=== PATIENT | male | born 1950 | race Caucasian/White ===

== ENCOUNTER → 2019-04-17 10:45 | Outpatient (BNVA) | payer MEDICARE, SELFPAY | PROVIDERS: Family Provider Family Medicine; PCP Family Medicine; Visit Provider Specialist | DX: M16.11 Unilateral primary osteoarthritis, right hip (principal) | CPT/HCPCS: 73502; 81001 ==

== ENCOUNTER 2019-05-02 15:46 | Observation (INO) | payer MEDICARE, SELFPAY ==
[2019-04-25 13:27] VITALS: BMI 36.2
--- NOTE | 2019-04-25 13:43 | ANES.PREANES ---
Pre-Anesthetic Assessment Pre-Anesthetic Assessment: Height/Weight: Height 1.8 m Weight 117.934 kg Preop Diagnosis: Severe degenerative osteoarthritis right hip Proposed Procedure: Operation Date: 05/02/19 09:45 Proposed Procedures p Total Hip Arthroplasty 33983(Right) - Mayra Johnson MD Exam: Pre-Anes Outpt Exam: alert, oriented x 3, clear to auscultation bilaterally and regular rate & rhythm Airway: Submandibular: WNL Cervical ROM: WNL MP: 1 Neuropsych: Neuropsych: [place] PFSH Anesthesia PFSH: Social History Smoking and tobacco status: never smoked Second hand smoke exposure: Yes Alcohol intake: current Alcohol intake frequency: few times a week Alcohol type: hard liquor Data Anesthesia Cardiac Studies: No Data to Display
[2019-05-02] VITALS (23 sets, daily range): BP systolic 102–151; BP diastolic 66–87; PULSE 82–112; RESP 14–22; TEMP 36.8–37.2; O2SAT 92–100
--- NOTE | 2019-05-02 07:23 | PM.HPUD ---
H&P update H&P Update: DATE OF SURGERY/PROCEDURE: 05/02/19 DATE H&P PERFORMED: 04/17/19 H&P UPDATE INFORMATION: H&P completed within last 30 days, No changes to prior documentation and H&P is in [facility] on date indicated PREOP DIAGNOSIS: Severe Degenerative Osteoarthritis Right Hip PRIMARY INDICATION FOR PROCEDURE: Right Hip Pain and limitations in ADL's PLANNED PROCEDURE: Operation Date: 05/02/19 09:45 Proposed Procedures Total Hip Arthroplasty 56443(Right) - Mayra Johnson MD Full H&P Perinent History: Family History: Family History (Updated 04/17/19 @ 10:31 by Tisha Boone LPN) Grandmother Stroke Grandfather Stroke Mother Stroke Dementia Father Cancer Lung disease Sister Psychiatric illness Other Hyperlipidemia Denies family history of Diabetes CAD (coronary artery disease) Clotting disorder Chronic kidney disease (CKD) Suicide Anesthesia complication Bleeding disorder Family history of premature coronary artery disease Hypertension Social History: Social History Smoking and tobacco status: never smoked Second hand smoke exposure: Yes Alcohol intake: current Alcohol intake frequency: few times a week Alcohol type: hard liquor
[2019-05-02] MEDS: CELEcoxib 200 mg Capsule 400 MG PO (09:55)
[2019-05-02] MEDS: sodium chloride 0.9% 1,000 ML 30 ML IV (09:55)
[2019-05-02 10:22] LABS: Basophils % 0.4 %; Eosinophils # 0.1 10^3/uL (0.0-0.8); Hematocrit 43.1 % (42.0-52.0); Hemoglobin 14.4 g/dL (11.7-16.6); Lymphocytes # 1.4 10^3/uL (0.8-4.8); Lymphocytes % 15.7 %; Mean Corpuscular HGB Conc 33.4 g/dL (30.0-36.0); Mean Corpuscular Hemoglobin 32.7 pg (28.0-34.0); Mean Platelet Volume 10.5 fL (7.4-10.4); Monocytes # 0.6 10^3/uL (0.2-0.9); Monocytes % 6.5 %; Neutrophils # 6.8 10^3/uL (1.8-7.7); Neutrophils % 76.2 %; Nucleated Red Blood Cells % 0 %; Platelet Count 227 10^3/cmm (130-400); Red Cell Distribution Width 11.9 % (12.1-15.1)
[2019-05-02 10:41] LABS: Alanine Aminotransferase 20 U/L (0-41); Albumin Level 4.5 g/dL (3.5-5.2); Alkaline Phosphatase 78 IU/L (40-130); Anion Gap 16.2 (5-19); Aspartate Amino Transferase 19 U/L (0-40); Blood Urea Nitrogen 21 mg/dL (8-23); Calcium 9.5 mg/dL (8.5-10.5); Carbon Dioxide 22 mmol/L (22-29); Chloride 101 mmol/L (98-107); Creatinine Clr Calc Pharmacy 101.1899; Globulin 2.3 g/dL (1.3-4.6); Glomerular Filtration Rate 83.7 mL/min (90-130); Glucose 107 mg/dL (74-106); Potassium 4.2 mmol/L (3.5-5.1); Sodium 135 mmol/L (136-145); Total Bilirubin 1.8 mg/dL (0.15-1.2); Total Protein 6.8 g/dL (6.6-8.7)
--- NOTE | 2019-05-02 12:21 | ANES.PREANES ---
Pre-Anesthetic Assessment Pre-Anesthetic Assessment: Height/Weight: Height 1.8 m Weight 117.934 kg Temp 98.2 F 05/02/19 10:05 Preop Diagnosis: Severe Degenerative Osteoarthritis Right Hip Proposed Procedure: Operation Date: 05/02/19 09:45 Proposed Procedures p Total Hip Arthroplasty 95723(Right) - Mayra Johnson MD Last intake: Intake Last Liquid Date 05/01/19 Last Solid Date 05/01/19 Social: Social History: Alcohol (weekly) and No tobacco Exam: Pre-Anes Outpt Exam: alert, oriented x 3, clear to auscultation bilaterally and regular rate & rhythm Airway: Submandibular: WNL Cervical ROM: WNL MP: 3 Dentition: Other (poor) History/ROS: No significant history except as noted Pulmonary: Pulmonary: None reported CV/HEM: CV/HEM: None reported : : None reported Hepatic: Hepatic: None reported GI: GI: GERD (occ) Metabolic: Metabolic: Hyperlipidemia and Morbid obesity Musc/skel: Musc/skel: OA/DJD Neuropsych: Neuropsych: Anxiety and Depression Anesthetic Plan: ASA status: III Anesthesia: Anesthesia Evaluation and General Risk of > 500 ml blood loss (7ml/kg in children): No Meds/Allergies Current Medications: Current Medications Generic Name Dose Route Start Last Admin Trade Name Freq PRN Reason Stop Dose Admin Sodium Chloride 1,000 mls @ 30 ml s/hr 05/02/19 09:45 05/02/19 09:55 Sodium Chloride 0.9% IV 05/03/19 09:44 30 mls/hr .Q24H SHAINA Administration PFSH Anesthesia PFSH: Medical History Anxiety (Acute) Depression (Acute) Hyperlipidemia (Acute) Polyuria (Acute) Surgical History Hx of adenoidectomy (Acute) Hx of bilateral cataract extraction (Acute) Hx of tonsillectomy (Acute) Family History Grandmother Stroke Grandfather Stroke Mother Stroke Dementia Father Cancer Lung disease Sister Psychiatric illness Other Hyperlipidemia Denies family history of Diabetes CAD (coronary artery disease) Clotting disorder Chronic kidney disease (CKD) Suicide Anesthesia complication Bleeding disorder Family history of premature coronary artery disease Hypertension Social History Smoking and tobacco status: never smoked Second hand smoke exposure: Yes Alcohol intake: current Alcohol intake frequency: few times a week Alcohol type: hard liquor Data Anesthesia CBC & Chem 7: 05/02/19 09:45 05/02/19 09:45 Other Labs: Laboratory Results - last 48 hr 05/02/19 05/02/19 05/02/19 09:45 09:45 09:45 WBC 9.0 RBC 4.40 Hgb 14.4 Hct 43.1 MCV 98.0 H MCH 32.7 MCHC 33.4 RDW 11.9 L Plt Count 227 MPV 10.5 H Neut % (Auto) 76.2 Lymph % (Auto) 15.7 Swisher % (Auto) 6.5 Eos % (Auto) 1.0 Baso % (Auto) 0.4 Neut # (Auto) 6.8 Lymph # (Auto) 1.4 Swisher # (Auto) 0.6 Eos # (Auto) 0.1 Baso # (Auto) 0.0 Nucleated RBC % (auto) 0 Nucleated RBCs # 0.0 Sodium 135 L Potassium 4.2 Chloride 101 Carbon Dioxide 22 Anion Gap 16.2 BUN 21 Creatinine 0.9 GFR Calculation 83.7 L Glucose 107 H Calcium 9.5 Total Bilirubin 1.8 H AST 19 ALT 20 Alkaline Phosphatase 78 Total Protein 6.8 Albumin 4.5 Globulin 2.3 Blood Type A Positive Antibody Screen Negative Cardiac Studies: No Data to Display
[2019-05-02] MEDS: midazolam 1 mg/mL INJ 2 mL 2 MG IVP (13:06)
[2019-05-02] MEDS: vancomycin 1,000 MG in sodium chloride 0.9% 250 ML 250 MG IV ×2 (13:06→20:54)
[2019-05-02] MEDS: vancomycin 1,000 MG SDV 1000 MG IRRIGATION (13:59)
--- NOTE | 2019-05-02 14:54 | SUR.OPER ---
Family Notified Of Patient's Status Via Phone.
[2019-05-02] MEDS: vancomycin 1,000 MG SDV 1000 MG XX (15:27)
--- NOTE | 2019-05-02 16:24 | XR_ITS ---
WS: [id number] Pelvis, AP view, 05/02/2019 Clinical Data: Post op Comparison: AP pelvis and 2 views right heel, 04/17/2019 Findings: There is a right hip arthroplasty in good position. 2 orthopedic screws are fixing the acetabular por tion of the prosthesis to the pelvis. The medullary portion of the prosthesis is within the proximal right femoral medullary canal. The left hip is normal. There is minimal air in the operative site. XR/XR pelvis 1-2V* [id number] Impression: Right hip arthroplasty.
[2019-05-02] MEDS: fentaNYL 50 mcg/mL INJ 2mL IVP ×2 (16:25→16:30)
[2019-05-02] MEDS: meperidine 50 mg/mL INJ 12.5 MG IVP ×2 (16:32→16:37)
--- NOTE | 2019-05-02 16:35 | PM.OP ---
Operative Report Date of procedure: 05/02/19 Pre-op Diagnosis: Severe Degenerative Osteoarthritis Right Hip Post-op diagnosis: same Post-op Findings: Severe degenerative osteoarthritis with large osteophytes, calcified labrum, and significant degenerative changes of the femoral head. Procedure Done: Right total hip arthroplasty utilizing the following components a size 60 mm Efren Trident II Tritanium cluster hole acetabular shell with a G alpha code with an MDM cementless liner size 48 mm by G alpha code, a size 8 Accolade to 127? neck angle hip stem with a 37 mm neck length, a 28 mm inner diameter with a 48G outer diameter sikhism X3 insert for the MDM, and a Biolox ceramic femoral head with a 28 mm outer diameter and a +0 mm neck length. 2 screws were placed in the acetabulum both 6.5 mm x 40 mm and 25 mm Specimens removed/disposition: Femoral head, disposed of Pathology: none sent Surgeon: Mayra Johnson Rack Pusher: [facility] OR technicians Anesthesia: General (Intubated) Estimated blood loss (mL): 1,000 IV fluids (mL): 2,000 Urine output (mL): 500 Complications: None Findings: Severe degenerative osteoarthritis with soft tissue contractures. Following the surgical procedure, the patient was stable at 90 degrees of flexion with 60 degrees of internal rotation and 30 degrees of adduction. He was also stable to external rotation and toe hang. Condition: stable Disposition: observation (On the surgical floor) Brief History: This 68-year-old gentleman was in his usual state of health when he presented with severe hip pain. X-rays demonstrated [id number] and shortening of the right lower extremity. The hip was completely obliterated with flattening of the femoral head. The patient wished to proceed with operative intervention as he was having significant limitations in his activities of daily living. Consents were signed and questions were answered and he was scheduled for the procedure as noted above. Procedure: Patient was brought to the operating theater. He was transferred to the operating room table and subsequently administered a general anesthetic intubated. Following administration of adequate anesthesia, the patient was placed in full lateral position and held in position with a pegboard. Also, the patient had minimal movement in his right lower extremity preoperatively which made draping as well as the entire surgical procedure very difficult and complex. The patient's right lower extremity was then prepped and draped in usual fashion utilizing DuraPrep. It was draped free. Following prepping and draping a surgical pause was performed. At the time of surgical pause, we identified the site and side of surgery. We also identified the patient and preoperative surgical markings. Confirmation was made of equipment availability. Additionally, the patient's preoperative IV antibiotic, vancomycin 1 g, was confirmed as being given in a timely fashion and being the appropriate antibiotic. Following the surgical pause, an incision was made centering over the patient's greater trochanter continuing proximally and distally as necessary to allow access to the hip joint. Dissection continued through skin and soft tissues using a scalpel, and hemostasis was obtained using electrocautery. The tensor fascia darvin was identified and incised longitudinally. Patient was very tight with regard to capsule, joint, and musculature which made this a very complex and difficult total hip arthroplasty. Sciatic nerve was identified and protected throughout the surgical procedure. A Charnley U retractor was placed after the tensor fascia darvin had been incised longitudinally, and the sciatic nerve had been identified. The hip was internally rotated as much as possible, and the piriformis muscle was identified and tagged. Piriformis muscle along with the remaining short external rotators were then incised from the posterior aspect of the hip joint. These were retracted posteriorly. The capsule was entered in a T-type fashion with the edges being tagged, and subsequently the hip was dislocated with use of a hip skid. Following hip dislocation, a femoral neck osteotomy was accomplished in the appropriate position. We then evaluated the acetabulum. The femur was retracted anteriorly. Soft tissues were retracted and the labrum was removed. There were noted to be significant osteophytes as well as calcified labrum. We then began reaming. Reaming was accomplished sequentially with appropriate deepening. Again, exposure of the acetabulum was difficult secondary to soft tissue contractures. Once the femoral head was removed, there was noted to be significant loss of cartilage over the head and over the acetabulum. We reamed to a size 59 mm to allow for a size 60 mm acetabular shell. The acetabulum was impacted into position. Two screws were then placed to better secure the cup. It was felt that screws would give us better stability. It was noted that the acetabulum matched the bony anatomy. The cup was noted to seat nicely and had good fixation upon impact. The MDM cementless metal liner was then impacted into position with care being taken to assure there was no soft tissue impingement between the acetabular liner and the acetabulum. Also, we confirmed that the acetabular insert was completely seated prior to addressing the femur. Attention was directed to the proximal femur. The proximal femur was lifted out of the wound. A canal finder was passed after the box chisel. The reamer was used to lateralize. We then began broaching. We broached sequentially and had excellent fit and fill with the size 8 Accolade II stem. A trial reduction was accomplished with a initially with a +0 mm femoral head with the 48G MDM insert. The patient had good stability with the +0 mm femoral head and it was not felt that we had increased his leg length. With this in place, we had the above stabilities, and at that time, we felt that we had restored leg lengths. We also felt that we had excellent stability noted above. Therefore, trial components were removed after the hip was dislocated. The size 8 Accolade to 127? neck angle hip stem with a 37 mm neck length was impacted into position without difficulty and onto this was placed the construct of the +0 mm femoral head with a 28 mm outer diameter and a sikhism MDM insert with a 28 mm inner diameter for the size 48G. With this construct, we had the above-noted stability. The stem was noted to seat nicely prior to placement of the femoral head. The wound was copiously irrigated with 20 mL of Betadine and 500 mL of normal saline mixed together. Subsequently, we suctioned this out and irrigated the wound copiously with lactated Ringer's. At this time, with all components in appropriate position, the hip was reduced. Following reduction of the prosthesis once again, we confirmed the stability of the hip. Leg lengths were also felt to be satisfactory. Being satisfied with the prosthesis, attention was directed to closure. Closure was accomplished with 0 Vicryl in the capsular tissues. Piriformis was reattached with 0 Vicryl as well. Tensor fascia darvin was closed with 0 Vicryl in an interrupted fashion. The subcutaneous tissues were closed with 2-0 Monocryl. Vancomycin powder and a Gelfoam thrombin mixture was placed into the wound as well. The skin was closed with a running 3-0 Monocryl followed by Exofin and Steri-Strips. This was covered with Telfa and Tegaderm. The patient was placed in an abduction pillow. He was returned the Recovery Room in a satisfactory condition and will be discharged to the floor for postoperative rehabilitation and pain management. There were no complications.
--- NOTE | 2019-05-02 16:49 | SUR.PHASEI ---
PTMORE ALERT RELAXED, GOOD RESP NOTED PT ON 3LNC SATS 100\5 NO DISTRESS, RT HIP DRESSING D/I DISTAL FOOT PULSE STRONG REGULAR AND MARKED BILAT FOOT PUMPS ON AND WRIGHT TO DD YELLOW URINE NOTED.
[2019-05-02] MEDS: morphine 4 mg/mL SDV 1 mL 2 MG IVP ×4 (17:00→17:11)
--- NOTE | 2019-05-02 17:13 | SUR.PHASEI ---
1632 PT AWAKES AND ALESHIA OUT SHIVERING EARLIER , WARM BLANKETS X 4 TO PT , SEE PAIN MEDS FOR SHIVERING AN DPAIN GIVEN, RT HIP DRESSING D/I FIRST ICE TO SITE. PT AWAKES AND ALESHIA OUT RATES PAIN AT 10 SEE ALL PAIN MEDS GIVEN PT REPORT CALLED AFTER EARLIER MEDS GIVEN DR TINSLEY AT BEDSIDE ORDERS RECIEVED TO CONTINUE TO GIVE MORPHINE 1717 PT SLEEPS IF NOT DISTURBED SATS 97% ON 3LNC
--- NOTE | 2019-05-02 17:24 | SUR.PHASEI ---
PT SLEEPS IF NOT DISTURBED VSS IV PATENT, RT HIP DRESSING D/I VSS PT READIED TO GO TO FLOOR PT STATES HE HAS NO FAMILY HERE REPORT CALLED BALBIR.
--- NOTE | 2019-05-02 17:56 | SUR.PHASEI ---
1745 PT TO FLOOR VSS PT AWKE ALERT TALKATIV EWITH STAFF.
[2019-05-02] MEDS: oxyCODONE-APAP 5-325 mg Tablet 1 TAB PO (18:08)
[2019-05-02] MEDS: atorvastatin 40 mg Tablet 20 MG PO (20:52)
[2019-05-02] MEDS: tamsulosin 0.4 mg Capsule PO (20:53)
[2019-05-02] MEDS: CELEcoxib 200 mg Capsule PO (20:53)
[2019-05-02] MEDS: TRAMadol 50 mg Tablet PO (20:53)
[2019-05-02] MEDS: sennosides-docusate Tablet 2 TAB PO (20:54)
[2019-05-02] MEDS: iron polysaccharide complex 150 mg Capsule PO (20:54)
[2019-05-02] MEDS: BuSPIRONE 10 mg Tablet PO (20:54)
[2019-05-02] MEDS: sertraline 50 mg Tablet PO (20:54)
[2019-05-02] MEDS: calcium carbonate 500 mg Chew Tablet 1000 MG PO (21:01)
[2019-05-02] MEDS: sodium chloride 0.9% 1,000 ML 100 ML IV (21:02)
[2019-05-02] MEDS: chlorhexidine gluconate 0.12% Btl 473 mL 30 ML MUCOUS MEM ×2 (21:14→21:20)
[2019-05-02] MEDS: trazodone 50 mg Tablet 25 MG PO (21:23)
[2019-05-03] VITALS (14 sets, daily range): BP systolic 70–151; BP diastolic 43–80; PULSE 74–90; RESP 16–20; TEMP 36.6–37.1; O2SAT 92–99
[2019-05-03 04:01] LABS: Basophils % 0.2 %; Eosinophils # 0.1 10^3/uL (0.0-0.8); Eosinophils % 0.5 %; Hematocrit 32.5 % (42.0-52.0); Hemoglobin 10.4 g/dL (11.7-16.6); Lymphocytes # 1.5 10^3/uL (0.8-4.8); Lymphocytes % 15.1 %; Mean Corpuscular Hemoglobin 31.4 pg (28.0-34.0); Mean Corpuscular Volume 98.2 fL (80-94); Mean Platelet Volume 10.5 fL (7.4-10.4); Monocytes # 0.8 10^3/uL (0.2-0.9); Monocytes % 8.5 %; Neutrophils # 7.4 10^3/uL (1.8-7.7); Neutrophils % 75.3 %; Nucleated Red Blood Cells % 0 %; Platelet Count 215 10^3/cmm (130-400); Red Blood Count 3.31 10^6/uL (4.1-5.3); Red Cell Distribution Width 12.3 % (12.1-15.1); White Blood Count 9.8 10^3/uL (4.0-10.0)
[2019-05-03] MEDS: sodium chloride 0.9% 1,000 ML 100 ML IV ×2 (06:03→15:00)
[2019-05-03] MEDS: oxyCODONE-APAP 5-325 mg Tablet 1 TAB PO ×3 (06:07→21:15)
[2019-05-03] MEDS: BuSPIRONE 10 mg Tablet PO ×2 (09:09→18:27)
[2019-05-03] MEDS: cholecalciferol (vitamin D3) 1,000 unit Tablet 1000 UNIT PO (09:09)
[2019-05-03] MEDS: multivitamin therapeutic Tablet 1 TAB PO (09:10)
[2019-05-03] MEDS: aspirin 325 mg EC Tablet PO (09:10)
[2019-05-03] MEDS: iron polysaccharide complex 150 mg Capsule PO ×2 (09:10→18:27)
[2019-05-03] MEDS: CELEcoxib 200 mg Capsule PO ×2 (09:10→21:15)
[2019-05-03] MEDS: sennosides-docusate Tablet 2 TAB PO ×2 (09:10→18:27)
[2019-05-03] MEDS: TRAMadol 50 mg Tablet PO ×2 (09:10→19:32)
[2019-05-03] MEDS: calcium carbonate 500 mg Chew Tablet 1000 MG PO ×2 (09:10→18:27)
[2019-05-03] MEDS: chlorhexidine gluconate 0.12% Btl 473 mL 30 ML MUCOUS MEM ×4 (09:11→21:17)
--- NOTE | 2019-05-03 12:28 | PC.CHAP ---
Pastoral Care Encounter/Spiritual Assessment Type of Contact [] Declined senior infrastructure architect visit [] Patient/Family/Request visit [] Outpatient visit [] Follow-up visit [] Physician referral [] Code/Alert [x] Routine visit [] Staff referral [] Actively dying [] Patient sleeping [] Family support [] [] Out of room [] Palliative care [] [] Receiving care in room [] Pre-surgical visit [] Trauma [] Long length of stay [] ICU visit [] Other: Relational/Emotional Strength [x] Patient feels connected with others/family/visitors/staff [] Distress [] Loneliness/isolation [] Abandonment Spirituality of Patient [x] Person of Melissa [x] Attends Mosque of their Melissa [x] Believes in Prayer [] Reads Bible or Oriental Orthodox materials [] There are Spiritual issues to be addressed Test Specialist Interventions [x] Prayer [x] Active listening [x] Non-anxious presence [x] Spiritual/emotional support [] Crisis/trauma care [] Spiritual counseling [] Bereavement support [] Provided bereavement packet [] Provided Bible/devotional materials [] Provided toy/stuffed animal, coloring book to patient or family member [x] Completed spiritual assessment [] Provided Communion [] Anointing/Alviso [] Salvation [] Other: Impact on Illness or Injury [] Angry [] Fearful [] Anxious [] Often cries [] Exhaustion [] Unable to work [] Unable to attend taoist [] Unable to walk/stand [] Unable to read [] Unable to drive [] Unable to eat/drink [] Unable to sleep [] Unable to be with family [] Other: Summary patient feels very good about his operation has visitor Time spent with patient 15 min
[2019-05-03] MEDS: tizanidine 4 mg Tablet PO (13:52)
--- NOTE | 2019-05-03 14:49 | ANE.PACU ---
 Inpatient post-anesthesia follow up: Airway intact: Yes Vital signs: Temperature 97.9 F Pulse Rate [Bilate ral Radial] 90 Pulse Rate 79 Respiratory Rate 18 Blood Pressure [Ri ght Arm] 133/69 Blood Pressure 136/75 Pulse Oximetry 94 Oxygen Delivery Me thod Room Air Oxygen Flow Rate 8 Fraction of Inspir ed Oxygen Hydration adequate: Yes Nausea and vomiting: No Pain level: 4 Mental status: Baseline
--- NOTE | 2019-05-03 17:50 | P.PN_ITS ---
Subjective Subjective: Interval history: The patient is doing well following his total hip arthroplasty yesterday. He continues to improve on a regular basis and has worked with physical therapy today. His pain is under control. His plan is to be discharged home with home health, but he will require further rehabilitation prior to being independent enough to be discharged home. Medications: Reviewed: Yes Vitals/I&O/Wt Last Vital Signs Temp 98.8 F 05/03/19 15:24 Pulse 77 05/03/19 16:04 Resp 18 05/03/19 16:04 BP 124/73 05/03/19 15:24 Pulse Ox 97 05/03/19 16:04 05/03/19 05/03/19 05/03/19 06:59 14:59 22:59 Intake Total 1101.667 / 3261.667 720 / 720 895 / 1615 Output Total 1000 / 2100 750 / 750 475 / 1225 Balance 101.667 / 1161.667 -30 / -30 420 / 390 Physical Exam Narrative: EXAM NARRATIVE: Patient's thigh is benign. There is no evidence of drainage or significant swelling in the thigh. There is no evidence of infection. There is no erythema. He is neurologically intact both to motor and sensory function distally. There is no evidence of DVT. The calf is soft and nontender. Urinary Catheter Management^: Ogden: Cath Placed During This Visit: no Data : 05/03/19 03:04 05/02/19 09:45 A&P Assessment and plan (1) History of total right hip arthroplasty: The patient's plan is to be discharged home with home health. This will be arranged for him through high school social studies tutor. He is doing well with no evidence of complication, infection, DVT, or other issue. He is working with physical therapy to improve in his independence. He will be reevaluated tomorrow for possible discharge to home. Status: Acute Code(s): Z96.641 - Presence of right artificial hip joint (2) Osteoarthritis of hip: This has resolved with total hip arthroplasty. Status: Inactive Qualifiers: Laterality: right Osteoarthritis type: primary Qualified Code(s): M16.11 - Unilateral primary osteoarthritis, right hip Code(s): M16.9 - Osteoarthritis of hip, unspecified Attestations Medical Necessity Statement*: Patient requires further rehabilitation both for safety and independence. Coding Level of Care Code Acute Train Brake Operator for Lucia Fwd Diagnoses History of total right hip arthroplasty Z96.641 Osteoarthritis of hip M16.11 Laterality: right Osteoarthritis type: primary
[2019-05-03] MEDS: atorvastatin 40 mg Tablet 20 MG PO (21:15)
[2019-05-03] MEDS: trazodone 50 mg Tablet PO (22:50)
[2019-05-04] VITALS (7 sets, daily range): BP systolic 113–135; BP diastolic 73–81; PULSE 75–82; RESP 16–18; TEMP 36.6–36.9; O2SAT 96–98
[2019-05-04] MEDS: TRAMadol 50 mg Tablet PO ×2 (02:02→14:18)
[2019-05-04] MEDS: sodium chloride 0.9% 1,000 ML 100 ML IV (02:02)
[2019-05-04 05:56] LABS: Basophils % 0.3 %; Eosinophils # 0.1 10^3/uL (0.0-0.8); Eosinophils % 1.6 %; Hematocrit 29.7 % (42.0-52.0); Hemoglobin 9.4 g/dL (11.7-16.6); Lymphocytes # 1.2 10^3/uL (0.8-4.8); Lymphocytes % 14.9 %; Mean Corpuscular HGB Conc 31.6 g/dL (30.0-36.0); Mean Corpuscular Hemoglobin 32.9 pg (28.0-34.0); Mean Corpuscular Volume 103.8 fL (80-94); Mean Platelet Volume 10.4 fL (7.4-10.4); Monocytes # 0.6 10^3/uL (0.2-0.9); Monocytes % 8.1 %; Neutrophils # 5.9 10^3/uL (1.8-7.7); Neutrophils % 74.7 %; Nucleated Red Blood Cells % 0 %; Platelet Count 152 10^3/cmm (130-400); Red Blood Count 2.86 10^6/uL (4.1-5.3); Red Cell Distribution Width 12.3 % (12.1-15.1); White Blood Count 7.9 10^3/uL (4.0-10.0)
[2019-05-04] MEDS: acetaminophen 500 mg Tablet 1000 MG PO (06:32)
[2019-05-04] MEDS: oxyCODONE-APAP 5-325 mg Tablet 1 TAB PO ×2 (07:27→12:04)
[2019-05-04] MEDS: iron polysaccharide complex 150 mg Capsule PO (07:29)
[2019-05-04] MEDS: BuSPIRONE 10 mg Tablet PO (09:37)
[2019-05-04] MEDS: aspirin 325 mg EC Tablet PO (09:37)
[2019-05-04] MEDS: calcium carbonate 500 mg Chew Tablet 1000 MG PO (09:37)
[2019-05-04] MEDS: sennosides-docusate Tablet 2 TAB PO (09:37)
[2019-05-04] MEDS: multivitamin therapeutic Tablet 1 TAB PO (09:37)
[2019-05-04] MEDS: cholecalciferol (vitamin D3) 1,000 unit Tablet 1000 UNIT PO (09:37)
[2019-05-04] MEDS: chlorhexidine gluconate 0.12% Btl 473 mL 30 ML MUCOUS MEM ×2 (09:38→12:04)
[2019-05-04] MEDS: CELEcoxib 200 mg Capsule PO (09:41)
--- NOTE | 2019-05-04 16:10 | P.DS_ITS ---
Discharge Providers Date of Admission: 05/02/19 15:46 Date of Discharge: 05/04/19 Attending Provider at Admission: Mayra Johnson MD Attending Provider at Discharge: Mayra Johnson MD Primary Care Provider: Bala Cortez Diagnoses at Discharge Discharge Diagnosis (1) History of total right hip arthroplasty: Status: Acute (2) Osteoarthritis of hip: Status: Inactive Qualifiers: Osteoarthritis type: primary Laterality: right Qualified Code(s): M16.11 - Unilateral primary osteoarthritis, right hip Reason for Visit Reason for Visit: Reason For Visit: Right Total Hip Arthroplasty Hospital Course Hospital Course: Patient was admitted on May 02, 2019 for same day surgery. Postoperatively, the patient was admitted under observation status to the floor for postoperative rehabilitation and pain management. At the time of surgery he underwent: Right total hip arthroplasty utilizing the following components a size 60 mm Efren Trident II Tritanium cluster hole acetabular shell with a G alpha code with an MDM cementless liner size 48 mm by G alpha code, a size 8 Accolade to 127? neck angle hip stem with a 37 mm neck length, a 28 mm inner diameter with a 48G outer diameter anabaptist X3 insert for the MDM, and a Biolox ceramic femoral head with a 28 mm outer diameter and a +0 mm neck length. 2 screws were placed in the acetabulum both 6.5 mm x 40 mm and 25 mm. He did well on both the first and second postoperative days working with physical therapy. He was felt safe to go home with home therapy. Therefore he was discharged home with follow-up with me in the office. Discharge Summary: The patient will be discharged home with home health to rehabilitate from his right total hip arthroplasty. Physical Exam Urinary Catheter Management^: Ogden: Cath Placed During This Visit: no Discharge Data Data Completed and Pending: Completed Studies During Hospitalization Category Date Time Status XR pelvis 1-2V* 7 2170 Stat Exams 05/02/19 16:24 Completed Pending at discharge Category Date Time Status Complete Blood Co unt w/Auto AM LABS Lab 05/05/19 04:00 Ordered Labs from last 24 hours 05/04/19 04:40 WBC 7.9 RBC 2.86 L Hgb 9.4 L Hct 29.7 L MCV 103.8 H MCH 32.9 MCHC 31.6 RDW 12.3 Plt Count 152 MPV 10.4 Neut % (Auto) 74.7 Lymph % (Auto) 14.9 Rusk % (Auto) 8.1 Eos % (Auto) 1.6 Baso % (Auto) 0.3 Neut # (Auto) 5.9 Lymph # (Auto) 1.2 Rusk # (Auto) 0.6 Eos # (Auto) 0.1 Baso # (Auto) 0.0 Nucleated RBC % (a uto) 0 Nucleated RBCs # 0.0 Vitals: Last Vital Signs Temp 98.5 F 05/04/19 11:00 Pulse 78 05/04/19 11:00 Resp 18 05/04/19 14:21 BP 113/73 05/04/19 11:00 Pulse Ox 96 05/04/19 11:00 Discharge Plan Discharge Patient Disposition: Home Health Service Condition: Stable Prescriptions: New celecoxib 200 mg Capsule 200 mg PO Q12H Qty: 60 RF: 0 acetaminophen 500 mg Tablet 1,000 mg PO BID 15 Days Qty: 60 RF: 0 oxycodone-acetaminophen 5-325 mg Tablet 1 tab PO Q4H PRN (Reason: Severe Pain) Qty: 30 RF: 0 aspirin 325 mg Tablet,Delayed Release (Dr/Ec) 325 mg PO DAILY 30 Days Qty: 30 RF: 0 Continued atorvastatin 10 mg tablet 10 mg PO ONCE RF: 0 buspirone 10 mg tablet 10 mg PO BID RF: 0 dutasteride 0.5 mg capsule 0.5 mg PO ONCE RF: 0 sertraline 50 mg tablet 50 mg PO Q24H RF: 0 tamsulosin 0.4 mg capsule 0.4 mg PO ONCE RF: 0 [id number] 149-hyal ac 750 mg-100 mg- 125 mg-1.65 mg Tablet 1 tab PO DAILY RF: 0 multivitamin Capsule 1 cap PO DAILY RF: 0 Held meloxicam 15 mg tablet 15 mg PO ONCE RF: 0 Hold Instructions: Resume on 06/02/19. Resume when Celebrex completed Discharge Orders: Discharge Order (Routine); Ordered 05/04/19 Ordered By: Mayra Johnson Referrals: [facility] [place] [facility] ([facility]) [Outside] (Your information has been sent to [facility] [place] [facility] to see if they can provide home health services. If you do not hear from them in 1-2 days after being discharged, you may call them at the number provided. ) Mayra Johnson MD [Physician] - 05/15/19 11:15 am Discharge Diet: Advance as tolerated Discharge Activity: Increase activity as tolerated, Limit activity as instructed and Use walker/crutches as instructed Patient Instructions: Acetaminophen (By mouth), Oxycodone/Acetaminophen (By mouth), Aspirin (By mouth), Celecoxib (By mouth), Hip Arthroscopy (DC) Activity Restrictions/Additional Instructions: Posterior hip precautions. Home physical therapy to work with gait training, strengthening, and range of motion. Discharge Attestations Time Spent in Discharge Care*: greater than 30 min Quality Metrics Clinical Quality Measures During this hospital stay, did patient experience: None Coding Level of Care Code Acute Doughnut Icer for Lucia Fwd Diagnoses History of total right hip arthroplasty Z96.641 Osteoarthritis of hip M16.11 Osteoarthritis type: primary Laterality: right
== END 2019-05-04 15:30 | disposition home health service (06) ==
LOC: MEDSURG 15:46
PROVIDERS: Admitting Provider Specialist; Family Provider Family Medicine; PCP Family Medicine; Visit Provider Specialist
PROC: (CPT 27130; principal; 2019-05-02 09:45)
DX: M16.11 Unilateral primary osteoarthritis, right hip (principal)
CPT/HCPCS: 27130; 12345; 36415; 51702; 72170; 80053; 85025; 86850; 86900; 96360; 96361; 96365; 96366; 96374; 97110; 97116; 97161; 97167; 97530; 97535; C1713; C1776; G0378; J0131; J1885; J2001; J2175; J2250; J2270; J2405; J2704; J2765; J3010; J3370; J3490; J7030; J7050

== ENCOUNTER → 2019-05-15 11:22 | Outpatient (BNVA) | payer MEDICARE, SELFPAY | PROVIDERS: Family Provider Family Medicine; PCP Family Medicine; Visit Provider Specialist | DX: Z48.89 Encounter for other specified surgical aftercare (principal); Z96.641 Presence of right artificial hip joint | CPT/HCPCS: 73502 ==

== ENCOUNTER → 2019-09-06 11:23 | Outpatient (BNVA) | payer MEDICARE, SELFPAY | PROVIDERS: Family Provider Family Medicine; PCP Family Medicine; Visit Provider Specialist | DX: Z96.641 Presence of right artificial hip joint (principal) | CPT/HCPCS: 73502 ==

== ENCOUNTER → 2020-07-22 07:46 | Outpatient (BNVA) | payer MEDICARE, SELFPAY | PROVIDERS: Family Provider Family Medicine; PCP Family Medicine; Referring Provider Family Medicine; Visit Provider Urology | DX: N40.1 Benign prostatic hyperplasia with lower urinary tract symptoms (principal) | CPT/HCPCS: 81003 ==